=== PATIENT | male | born 1970 | race Two or more races ===

== ENCOUNTER 2018-05-12 10:59 | Emergency (ER) | payer OTHER ==
[~2018-05-12] VITALS: Ht 162.6 cm; Wt 61.2 kg
[2018-05-12 11:05] VITALS: BP 123/84
[2018-05-12] MEDS ORDERED: Tetanus/Diptheria/Pertussis Vaccine 0.5ml Syr IM ONE (11:30)
[2018-05-12] MEDS ORDERED: Lidocaine 1% MPF 10mg/ml 5ml INJ ONE (11:30)
[2018-05-12] MEDS ORDERED: Bacitracin Oint UD TOPIC ONE (11:30)
--- NOTE | 2018-05-12 12:09 | Emergency Room Report ---
History of Present Illness General Chief Complaint: Upper Extremity Injury Source: Patient Present Illness HPI Patient was cutting barb. Denies slipped and he cut his left index finger. The patient is right-handed. He denies any significant pain at this time. There is quite a bit of bleeding at the scene. He control this with direct pressure and elevation of the hand. His tetanus is greater than 10 years. He denies numbness. No fevers or medical problems. He denies diabetes. 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[facility], works maintenance Reviewed Nursing Documentation: PMH: Agreed; PSxH: Agreed Nursing Documentation-PMH Past Medical History: No History, Except For Review of Systems Constitutional: Reports: see HPI Musculoskeletal: Reports: see HPI Skin: Reports: see HPI Neurological: Reports: see HPI Hematologic/Lymphatic: Reports: see HPI Physical Exam Vital Signs Date Time Temp Pulse Resp B/P (MAP) Pulse Ox O2 Delivery O2 Flow Rate FiO2 05/12/18 11:05 97.6 73 20 123/84 96 Room Air 97.6 Sp02 EP Interpretation: reviewed, normal General Appearance: well appearing, no apparent distress, GCS 15 Head: normocephalic, atraumatic Eyes: bilateral eye normal inspection, bilateral eye PERRL ENT: hearing grossly normal, normal voice, moist mucus membranes Neck: full range of motion, supple Respiratory: no respiratory distress, speaking full sentences Musculoskeletal: gait/station normal, normal range of motion, no calf tenderness, other - Tendons intact Neurologic: alert, motor strength/tone normal, sensory intact, normal gait Psychiatric: mood/affect normal Skin: laceration - Radial side of index finger Procedures Laceration/Wound Repair Laceration/Wound Repair : Consent: Verbal Wound Location: upper extremity Wound's Depth, Shape: superficial Wound Length (cm): 1 Wound Explored: clean Irrigated w/ Saline (ccs): 20 Betadine Prep?: Yes Anesthesia: 1% Lidocaine Volume Anesthetic (ccs): 1 Wound Debrided: minimal Wound Repaired With: sutures Suture Size/Type: 5:0 Sterile Dressing Applied?: Yes Splint Applied?: No Patient Tolerated: Well Complications: None Medical Decision Making Diagnostic Impression: Primary Impression: Finger laceration Qualified Codes: S61.211A - Laceration without foreign body of left index finger without damage to nail, initial encounter ER Course Patient with laceration to his left index finger. Tetanus is needed as well as laceration repair. Neurovascular is intact and tendons are intact. Laceration was sutured. Patient tolerated well. Patient stable for outpatient observation and treatment. Last Vital Signs Date Time Temp Pulse Resp B/P (MAP) Pulse Ox O2 Delivery O2 Flow Rate FiO2 05/12/18 12:32 97.6 20 123/84 96 Room Air 97.6 05/12/18 11:05 73 Status: improved Disposition: HOME, SELF-CARE Condition: Improved Scripts Ibuprofen* (MOTRIN*) 600 Mg Tablet 600 MG ORAL Q6H PRN for For Pain, #10 TAB Prov: Colby Toscano M.D. 05/12/18 Bacitracin (Bacitracin) 28.4 Gm Oint...g. 1 APPLIC TOPIC BID, #10 GM Prov: Colby Toscano M.D. 05/12/18 Colby Toscano M.D. May 12, 2018 12:09
[2018-05-12] MEDS ORDERED: IBUPROFEN600 MG ORAL (12:23)
[2018-05-12] MEDS ORDERED: BACITRACIN15 GM TOPIC (12:23)
[2018-05-12 12:31] VITALS: BP 123/84
[2018-05-12 12:32] VITALS: BP 123/84
== END 2018-05-12 12:34 | disposition home or self-care (01) ==
LOC: EMR 12:21
DX: S61.211A Laceration without foreign body of left index finger without damage to nail, initial encounter (principal); Z23 Encounter for immunization; W01.118A Fall on same level from slipping, tripping and stumbling with subsequent striking against other sharp object, initial encounter; Y93.9 Activity, unspecified; Y92.9 Unspecified place or not applicable; Y99.9 Unspecified external cause status
CPT/HCPCS: 90471; 90715; 96372; 99283

== ENCOUNTER 2018-05-19 14:54 | Emergency (ER) | payer OTHER ==
[~2018-05-19] VITALS: Ht 160 cm; Wt 59.0 kg
[~2018-05-19 14:54] MED LIST: BACITRACIN15 GM TOPIC; IBUPROFEN600 MG ORAL
[2018-05-19 15:21] VITALS: BP 118/78
--- NOTE | 2018-05-19 15:53 | Emergency Room Report ---
History of Present Illness General Chief Complaint: Wound Recheck/Suture Removal Source: Patient Present Illness HPI 48-year-old male presents to the emergency department requesting suture removal. Patient states that he had sutures placed one week ago in the left index finger after sustaining a laceration. Patient denies erythema denies bleeding denies discharge denies pain, fevers or chills. Patient states he is up-to-date with vaccinations. Allergies: Coded Allergies: No Known Allergies (Unverified , 05/12/18) Patient History Past Medical History: see triage record Past Surgical History: none Pertinent Family History: none Immunizations: UTD Reviewed Nursing Documentation: PMH: Agreed; PSxH: Agreed Nursing Documentation-PMH Past Medical History: No Stated History Review of Systems All Other Systems: negative except mentioned in HPI Physical Exam Vital Signs Date Time Temp Pulse Resp B/P (MAP) Pulse Ox O2 Delivery O2 Flow Rate FiO2 05/19/18 15:21 98.0 86 18 118/78 99 Room Air 98.0 Sp02 EP Interpretation: reviewed, normal General Appearance: no apparent distress, alert, GCS 15, non-toxic Head: normocephalic, atraumatic ENT: hearing grossly normal, normal voice Neck: full range of motion Respiratory: lungs clear, normal breath sounds, speaking full sentences Cardiovascular #1: regular rate, rhythm Musculoskeletal: back normal, gait/station normal, normal range of motion, non- tender Neurologic: alert, oriented x3, responsive, motor strength/tone normal, sensory intact, speech normal, grossly normal Psychiatric: judgement/insight normal Skin: normal color, no rash, warm/dry, well hydrated, wd healing/no infection noted - 3 sutures noted left index finger Medical Decision Making PA Attestation Dr. Durand is my supervising physician whom pt. management has been discussed with. Diagnostic Impression: Primary Impression: Encounter for removal of sutures ER Course 28 YO Female presents to the emergency department complaining of 10 out of 10 in severity lower abdominal cramping pain x 2 days with nausea and vomiting 3 days. She reports she has been having difficulty with morning sickness but has not been prescribed any medications. Patient states that she is having difficulty with keeping food down, some success with fluids. Denies vaginal discharge, bleeding, fevers, chills or abdominal tenderness. Ddx considered but are not limited to laceration, tendon injury, cellulitis, dehiscence. Vital signs: are WNL, pt. is afebrile H&PE are most consistent with: healed laceration of the left index finger ORDERS: none required at this time, the diagnosis is clinical ED INTERVENTIONS: - 3 Sutures removed. DISCHARGE: At this time pt. is stable for d/c to home. Will provide printed patient care instructions, and any necessary prescriptions. Care plan and follow up instructions have been discussed with the patient prior to discharge. Last Vital Signs Date Time Temp Pulse Resp B/P (MAP) Pulse Ox O2 Delivery O2 Flow Rate FiO2 05/19/18 15:21 98.1 96 18 118/78 99 Room Air 98.1 Disposition: HOME, SELF-CARE Condition: Stable Patient Instructions: Suture Removal, Care After Additional Instructions: Follow up with a Primary Care Provider in 3-5 days, even if your symptoms have resolved. --Please review list of primary care clinics, if you do not already have a primary care provider Return sooner to ED if new symptoms occur, or current symptoms become worse. - Please note that this Emergency Department Report was dictated using [employer] technology software, occasionally this can lead to erroneous entry secondary to interpretation by the dictation equipment. Kathia Forrest May 19, 2018 15:53
[2018-05-19 16:14] VITALS: BP 118/78
== END 2018-05-19 16:15 | disposition home or self-care (01) ==
LOC: EMR 16:12
DX: Z48.02 Encounter for removal of sutures (principal)
CPT/HCPCS: 99281